=== PATIENT | male | born 1945 | race Caucasian/White ===

== ENCOUNTER 2019-10-19 09:59 | Emergency (ER) | payer MEDICARE ==
[2019-10-19] MEDS ORDERED: Sodium Chloride 0.9% 1,000 ML IV ONE ×2 (10:01→10:18)
[2019-10-19] MEDS ORDERED: Morphine 2 MG/ML SYRINGE IVPUSH ONE (10:19)
[2019-10-19] MEDS ORDERED: Ondansetron 4 MG/2 ML SDV IVPUSH ONE (10:19)
--- NOTE | 2019-10-19 10:25 | EDM.PDOC ---
ED HPI GENERAL MEDICAL PROBLEM - General Chief Complaint: Abdominal Pain Time Seen by Provider: 10/19/19 10:05 Source of Information: Reports: Patient History Limitations: Reports: No Limitations - History of Present Illness INITIAL COMMENTS - FREE TEXT/NARRATIVE: c/o RLQ pain lives with , home yesterday, was inside, felt okay yesterday to bed at 10:30p, awoke 6a and felt fine, 2h later had sharp pain "like a sword" from his L flank to his R flank, not gotten better some N, no V, nothing to eat or drink today no BM today no prior abd surgery BP 90/60 remains uncomfortable never had colonoscopy has Leiden Factor V pt is in afib and is on warfarin with INR 1.9 his BP inc'd to 139/83 after 1 liter NS pain lower abd resolved completely after MS 2 mg IV PMH hyperlipidemia, h/o PUD with duodenal ulcer with hemorrhage, senile cataract, DVT b/l LEs, AAA, Leiden factor V, elevated factor VIII, thrombophilia, postphlebitic syndrome - Related Data Allergies Allergy/AdvReac Type Severity Reaction Status Date / Time cephalexin Allergy Nausea and Verified 10/19/19 12:05 Vomiting codeine Allergy Hallucinati Verified 10/19/19 12:05 ons Sulfa (Sulfonamide Allergy Cannot Verified 10/19/19 12:05 Antibiotics) Remember Home Meds: Home Meds Aspirin 325 mg PO DAILY 10/19/19 [History] Losartan Potassium 100 mg PO DAILY 10/19/19 [History] Multivit-Min/FA/Lycopen/Lutein [Centrum Silver Ultra Men's] 1 each PO DAILY 10/19/19 [History] Simvastatin 40 mg PO DAILY 10/19/19 [History] Warfarin Sodium 5 mg PO DAILY 10/19/19 [History] metFORMIN HCl [Metformin HCl] 850 mg PO BID 10/19/19 [History] Social & Family History - Living Situation & Occupation Living situation: Reports: Occupation: Retired ED ROS GENERAL - Review of Systems Review Of Systems: See Below Constitutional: Reports: No Symptoms HEENT: Reports: No Symptoms Respiratory: Reports: No Symptoms. Denies: Shortness of Breath Cardiovascular: Reports: No Symptoms Endocrine: Reports: No Symptoms GI/Abdominal: Reports: Abdominal Pain, Nausea : Reports: No Symptoms Musculoskeletal: Reports: No Symptoms Skin: Reports: No Symptoms Neurological: Reports: No Symptoms Psychiatric: Reports: No Symptoms Hematologic/Lymphatic: Reports: No Symptoms Immunologic: Reports: No Symptoms ED EXAM, GI/ABD - Physical Exam Exam: See Below Exam Limited By: No Limitations General Appearance: Alert, WD/WN, Moderate Distress Ears: Hearing Grossly Normal Nose: No Blood Throat/Mouth: Normal Inspection, Normal Lips, Normal Voice, No Airway Compromise Head: Atraumatic, Normocephalic Neck: Normal Inspection, Supple, Non-Tender, Full Range of Motion. No: Lymphadenopathy (R), Lymphadenopathy (L) Respiratory/Chest: No Respiratory Distress, Lungs Clear, Normal Breath Sounds, No Accessory Muscle Use, Chest Non-Tender Cardiovascular: Regular Rate, Rhythm, No Edema, No Rub, Other (2/6 RACHEL at LSB) GI/Abdominal Exam: Other (large midline ventral hernia below umbilicus that is soft and NT, 1-2+ tender RLQ to deeper palpation with guard and rebound, less tender at R flank, NT elsewhere, BS present and dec'd, back with CVAT on R) Back Exam: Normal Inspection, Full Range of Motion Extremities: Normal Inspection, Non-Tender, No Pedal Edema Neurological: Alert, Oriented, CN II-XII Intact, Normal Cognition, No Motor/Sensory Deficits Psychiatric: Normal Affect, Normal Mood Skin Exam: Warm, Dry, Intact, Normal Color, No Rash Lymphatic: No Adenopathy Course - Vital Signs Last Recorded V/S: Last Vital Signs Temp 36.2 C 10/19/19 11:18 Pulse 68 10/19/19 11:18 Resp 16 10/19/19 11:18 BP 90/50 L 10/19/19 11:18 Pulse Ox 95 10/19/19 11:18 - Orders/Labs/Meds Orders: Active Orders 24 hr Category Date Time Status EKG Documentation Completion [RC] ASDIRECTED Care 10/19/19 10:02 Active CULTURE BLOOD [BC] Urgent Lab 10/19/19 10:20 Received CULTURE BLOOD [BC] Urgent Lab 10/19/19 10:25 Received FRESH FROZEN PLASMA [BBK] Stat Lab 10/19/19 11:57 Ordered Blood Culture x2 Reflex Set [OM.PC] Urgent Oth 10/19/19 10:18 Ordered EKG 12 Lead [EK] Routine Ther 10/19/19 10:01 Ordered Labs: Laboratory Tests 10/19/19 10/19/19 10/19/19 Range/Units 10:20 10:20 10:20 WBC 12.4 H (4.5-12.0) X10-3/uL RBC 4.07 L (4.30-5.75) x10(6)uL Hgb 12.8 L (13.5-17.8) g/dL Hct 39.7 (30.0-51.3) % MCV 97.5 H (80-96) fL MCH 31.5 (27.7-33.6) pg MCHC 32.3 (32.2-35.4) g/dL RDW 14.2 (11.5-15.5) % Plt Count 207 (125-369) X10(3)uL MPV 8.2 (7.4-10.4) fL Add Manual Diff Yes Neutrophils % (Manual) 86 H (46-82) % Lymphocytes % (Manual) 11 L (13-37) % Monocytes % (Manual) 3 L (4-12) % PT 20.1 H (9.0-11.1) sec INR 1.94 H (1.00-1.24) Sodium 139 (135-145) mmol/L Potassium 4.5 (3.5-5.3) mmol/L Chloride 105 (100-110) mmol/L Carbon Dioxide 23 (21-32) mmol/L BUN 22 H (7-18) mg/dL Creatinine 1.6 H (0.70-1.30) mg/dL Est Cr Clr Drug Dosing TNP Estimated GFR (MDRD) 43 L (>60) BUN/Creatinine Ratio 13.8 (9-20) Glucose 240 H (80-116) mg/dL Hemoglobin A1c (<5.7) % Lactic Acid (0.4-2.0) mmol/L Calcium 9.8 (8.6-10.2) mg/dL Total Bilirubin 0.8 (0.1-1.3) mg/dL AST 18 (5-25) IU/L ALT 16 (12-36) U/L Alkaline Phosphatase 71 (56-112) IU/L Troponin I (4.0-60.3) pg/mL C-Reactive Protein (0.5-0.9) mg/dL Total Protein 6.4 (6.0-8.0) g/dL Albumin 3.3 (3.2-4.6) g/dL Globulin 3.1 g/dL Albumin/Globulin Ratio 1.1 TSH, Ultra Sensitive (0.36-3.74) IU/mL Blood Type 10/19/19 10/19/19 10/19/19 Range/Units 10:20 10:20 10:20 WBC (4.5-12.0) X10-3/uL RBC (4.30-5.75) x10(6)uL Hgb (13.5-17.8) g/dL Hct (30.0-51.3) % MCV (80-96) fL MCH (27.7-33.6) pg MCHC (32.2-35.4) g/dL RDW (11.5-15.5) % Plt Count (125-369) X10(3)uL MPV (7.4-10.4) fL Add Manual Diff Neutrophils % (Manual) (46-82) % Lymphocytes % (Manual) (13-37) % Monocytes % (Manual) (4-12) % PT (9.0-11.1) sec INR (1.00-1.24) Sodium (135-145) mmol/L Potassium (3.5-5.3) mmol/L Chloride (100-110) mmol/L Carbon Dioxide (21-32) mmol/L BUN (7-18) mg/dL Creatinine (0.70-1.30) mg/dL Est Cr Clr Drug Dosing Estimated GFR (MDRD) (>60) BUN/Creatinine Ratio (9-20) Glucose (80-116) mg/dL Hemoglobin A1c 6.3 H (<5.7) % Lactic Acid 2.5 H* (0.4-2.0) mmol/L Calcium (8.6-10.2) mg/dL Total Bilirubin (0.1-1.3) mg/dL AST (5-25) IU/L ALT (12-36) U/L Alkaline Phosphatase (56-112) IU/L Troponin I 13.5 (4.0-60.3) pg/mL C-Reactive Protein 1.2 H (0.5-0.9) mg/dL Total Protein (6.0-8.0) g/dL Albumin (3.2-4.6) g/dL Globulin g/dL Albumin/Globulin Ratio TSH, Ultra Sensitive 1.50 (0.36-3.74) IU/mL Blood Type 10/19/19 Range/Units 10:20 WBC (4.5-12.0) X10-3/uL RBC (4.30-5.75) x10(6)uL Hgb (13.5-17.8) g/dL Hct (30.0-51.3) % MCV (80-96) fL MCH (27.7-33.6) pg MCHC (32.2-35.4) g/dL RDW (11.5-15.5) % Plt Count (125-369) X10(3)uL MPV (7.4-10.4) fL Add Manual Diff Neutrophils % (Manual) (46-82) % Lymphocytes % (Manual) (13-37) % Monocytes % (Manual) (4-12) % PT (9.0-11.1) sec INR (1.00-1.24) Sodium (135-145) mmol/L Potassium (3.5-5.3) mmol/L Chloride (100-110) mmol/L Carbon Dioxide (21-32) mmol/L BUN (7-18) mg/dL Creatinine (0.70-1.30) mg/dL Est Cr Clr Drug Dosing Estimated GFR (MDRD) (>60) BUN/Creatinine Ratio (9-20) Glucose (80-116) mg/dL Hemoglobin A1c (<5.7) % Lactic Acid (0.4-2.0) mmol/L Calcium (8.6-10.2) mg/dL Total Bilirubin (0.1-1.3) mg/dL AST (5-25) IU/L ALT (12-36) U/L Alkaline Phosphatase (56-112) IU/L Troponin I (4.0-60.3) pg/mL C-Reactive Protein (0.5-0.9) mg/dL Total Protein (6.0-8.0) g/dL Albumin (3.2-4.6) g/dL Globulin g/dL Albumin/Globulin Ratio TSH, Ultra Sensitive (0.36-3.74) IU/mL Blood Type A POSITIVE Meds: Medications Discontinued Medications Generic Name Dose Route Start Last Admin Trade Name Drake PRN Reason Stop Dose Admin Sodium Chloride 1,000 mls @ 999 mls/hr 10/19/19 10:01 10/19/19 10:56 Normal Saline IV 10/19/19 11:01 999 mls/hr .BOLUS ONE Administration Sodium Chloride 1,000 mls @ 999 mls/hr 10/19/19 10:18 Normal Saline IV 10/19/19 11:18 .BOLUS ONE Iopamidol 100 ml 10/19/19 11:07 10/19/19 11:24 Isovue-370 (76%) IV 10/19/19 11:08 100 ml . DIRECTED ONE Administration Morphine Sulfate 2 mg 10/19/19 10:19 10/19/19 10:56 Morphine IVPUSH 10/19/19 10:20 2 mg ONETIME ONE Administration Ondansetron HCl 4 mg 10/19/19 10:19 10/19/19 10:56 Zofran IVPUSH 10/19/19 10:20 4 mg ONETIME ONE Administration - Re-Assessments/Exams Free Text/Narrative Re-Assessment/Exam: 10/19/19 13:06 d/w Dr Romero earlier, [facility], vascular surgeon, who accepted pt in transfer he recommended FFP which was hung as air ambulance arrived, declined TTX which is not on formulary in hosp I incorrectly reported a RCC to Dr Romero based on a CT report 1m ago that turned out to be on a different pt, I called Jennifer nurse triage and asked her to extend my apology to Dr Romero I spoke with pt's and explained to her the leaking AAA both initial CT images of abd and pelvis with IV contrast as well as the delayed images requested by Dr Recinos where sent to [place] Dr Mackey, surgeon, had the initial d/w Dr Recinos re the leaking AAA Departure - Departure Time of Disposition: 12:45 Disposition: DC/Tfer to Acute Hospital 02 Condition: Critical Clinical Impression: Leaking abdominal aortic aneurysm (AAA), Intra-abdominal hematoma, Elevated lactic acid level, [facility] current use of anticoagulant therapy, Chronic atrial fibrillation, Acute renal insufficiency - Discharge Information *PRESCRIPTION DRUG MONITORING PROGRAM REVIEWED*: Not Applicable *COPY OF PRESCRIPTION DRUG MONITORING REPORT IN PATIENT KARISSA: Not Applicable Referrals: PCP,None [Ordering Only Provider] - Forms: ED Department Discharge Sepsis Event Note (ED) - Focused Exam Vital Signs: Vital Signs Temp Pulse Resp BP Pulse Ox 10/19/19 11:18 36.2 C 68 16 90/50 L 95 - My Orders Last 24 Hours: My Active Orders 10/19/19 10:01 EKG 12 Lead [EK] Routine 10/19/19 10:02 EKG Documentation Completion [RC] ASDIRECTED 10/19/19 10:18 Blood Culture x2 Reflex Set [OM.PC] Urgent 10/19/19 10:20 CULTURE BLOOD [BC] Urgent 10/19/19 10:25 CULTURE BLOOD [BC] Urgent 10/19/19 11:57 FRESH FROZEN PLASMA [BBK] Stat - Assessment/Plan Last 24 Hours: My Active Orders 10/19/19 10:01 EKG 12 Lead [EK] Routine 10/19/19 10:02 EKG Documentation Completion [RC] ASDIRECTED 10/19/19 10:18 Blood Culture x2 Reflex Set [OM.PC] Urgent 10/19/19 10:20 CULTURE BLOOD [BC] Urgent 10/19/19 10:25 CULTURE BLOOD [BC] Urgent 10/19/19 11:57 FRESH FROZEN PLASMA [BBK] Stat
[2019-10-19] MEDS ORDERED: Iopamidol 755 Mg/ML 100 ML Bottle IV ONE (11:07)
[2019-10-19 11:17] LABS: HEMOGLOBIN A1C 6.3 % (<5.7)
--- NOTE | 2019-10-19 12:36 | CT ---
INDICATION: Right lower quadrant pain times 2 hours compatible with appendicitis. No prior abdominal surgery. CT ABDOMEN AND PELVIS WITH CONTRAST: Spiral 3.75 mm axial sections were obtained through the abdomen and pelvis with 100 mL Isovue-370 at 2 mL/second with sagittal and coronal reconstructions 10/19/[address] of the abdomen and pelvis from 11/03/18 as well as CTs extending back to 04/07/14. Some atelectatic appearing or fibrotic change is noted in the middle lobe, present previously on 2019 examination - most likely atelectatic or fibrotic. Some minimal fibrotic change is also suggested in the right lower lobe. A definite active infiltrate or effusion was not seen. The heart did not appear enlarged. No pericardial effusion was seen. Coronary artery calcification is noted. The liver and gallbladder were unremarkable. The adrenal glands appear similar to the previous study with no gross abnormality. There is some cortical thinning of the right kidney with a small cyst off the cortex lower middle pole area laterally on the right. There is pyelocaliectasis on the left which is a new finding. Etiology is indeterminate but could be on the basis of obstructive uropathy due to a massively enlarged prostate which now measures approximately 91 x 84 mm. Delayed images of the abdomen CT may be obtainable and may be helpful in that regard. There is also noted off the upper pole of the left kidney a slightly more prominent cyst - simple cyst suggested by appearance, measuring maximum 32 mm and oval in shape. There is some bilateral cortical irregularity suggesting cortical scarring along with renal fascial thickening. The spleen and pancreas appeared essentially normal. There is again noted a large abdominal aortic aneurysm which measures approximately 72 mm and is not increased in size compared with the previous study. However, there is noted leakage from the stent within the aneurysm with contrast beyond the wall of the stent. There is also a collar of density around the abdominal aortic aneurysm as well as extending into the peritoneum anterolaterally on the right. This is extending into the pericolic gutter around the liver and there is a mass measuring approximately 82 x 73 x 78 mm in that area which measures a Hounsfield unit of 47 and may represent a large hematoma. There is again noted a large umbilical hernia which measures approximately 65 x 81 mm with a large opening into the peritoneum of 33 mm and including only fat except in the inferior portion where there is some increased density which could represent fluid, possible blood. The urinary bladder is dilated with thickened wall measuring 131 x 149 x 80 mm. The prostate is markedly enlarged measuring 91 x 84 x 84 mm.in transverse, AP and craniocaudal diameters. There is also an inguinal hernia on the right which includes mostly fat but does include fluid extending into the right scrotum. This could be blood from the apparent aneurysm leakage. No other mass lesions, organomegaly or free fluid collections were identified. There is noted fat stranding throughout most of the abdomen and pelvis. IMPRESSION: 1. Fairly stable overall size of the abdominal aortic aneurysm measuring approximately 72 mm anteriorly with aortoiliac stents in place with leakage. 2. Massive prostate with urinary retention and thickening of the wall of the urinary bladder. 3. Minimal cystic changes in the kidneys. 4. Right inguinal hernia with fluid extending into the right scrotum. 5. What appears to be hydronephrosis is noted with apparent obstruction near the ureteropelvic junction. Delayed images of the abdomen and pelvis will be obtained for CT urogram. It will be commented on as an addendum to this examination. 6. Degenerative changes and disc disease are noted in the thoracolumbar spine and in the lumbosacral spine as well as upper lumbar area. Report was given in person to Dr. Mackey at 1140 hours. Report should be faxed to [phone]. ADDENDUM: 40-minute delayed images were obtained with spiral 3.75 mm axial images with sagittal and coronal reconstructions 10/19/19, compared with current study from the same date and reveals contrast filling the dilated pyelocaliceal system and portions of the ureter on the left. There appears to be fairly high degree or kinking of the ureter distally which may account for a portion of the apparent obstructive process. The possibility of some filling defects in the proximal third of the ureter is difficult to exclude. Depending upon clinical course, additional examination may be warranted such as retrograde pyelography. The pyelocaliceal system and ureter on the right showed no evidence of obstructive uropathy. IMPRESSION: Apparent interval obstructive uropathy is noted on the left which may be partly on the basis of kinking at the distal ureter with partial obstruction at that site (the more distal ureter does fill with contrast) or possibly filling defects producing partial obstruction in the proximal third of the ureter. Retrograde pyelography on the left may be helpful for further evaluation depending upon clinical course and clinical necessity. [facility]
[2019-10-19 20:03] VITALS: BP 137/62; PULSE 107
== END 2019-10-19 12:44 ==
LOC: FB.ED 09:59
DX: I71.4 Abdominal aortic aneurysm, without rupture (principal); M79.81 Nontraumatic hematoma of soft tissue; R74.0 Nonspecific elevation of levels of transaminase and lactic acid dehydrogenase [LDH]; I48.20 Chronic atrial fibrillation, unspecified; N28.9 Disorder of kidney and ureter, unspecified; E78.5 Hyperlipidemia, unspecified; Z88.5 Allergy status to narcotic agent; Z88.1 Allergy status to other antibiotic agents; Z88.2 Allergy status to sulfonamides; Z79.82 Long term (current) use of aspirin; Z79.01 Long term (current) use of anticoagulants; Z79.899 Other long term (current) drug therapy
CPT/HCPCS: 36415; 36430; 74177; 80053; 83036; 83605; 84443; 84484; 85025; 85610; 86140; 86900; 86901; 87040; 93005; 96361; 96374; 96375; 99285-25; J2270; J2405; J7030; P9017; Q9967